=== PATIENT | male | born 1980 | race Hispanic/Latino ===

== ENCOUNTER 2016-10-19 05:16 | Emergency (ER) | payer OTHER ==
[~2016-10-19] VITALS: Ht 180.3 cm; Wt 100.0 kg
[2016-10-19 05:22] VITALS: BP 170/116; PULSE 96; RESP 16; O2SAT 99
--- NOTE | 2016-10-19 06:16 | ED.REPORT ---
HPI-Rash / Abscess Date of Service Oct 19, 2016 ED Provider: Ugo Gutierrez MD Pt is a 36 year old male with a history of HTN who presents to the ED complaining of itching on his left leg onset 3 days ago. He c/o associated erythema and pain at the site. He denies fever, chills, diaphoresis, injury or wound, other sites of erythema, and any other symptoms. Nursing Notes Stated Complaint: INSECT BITE SWOLLEN LT LEG Chief Complaint: Skin Rash/Abscess Nursing Notes Reviewed: Yes (Watsi not reconciled) Allergies: Coded Allergies: No Known Allergies (Unverified , 10/19/16) Scheduled Cephalexin (Cephalexin) 500 Mg Tablet 500 MG PO TID Sulfamethoxazole/Trimeth 800-160 mg (Bactrim DS) 1 Each Tablet 1 TABLET PO BID Scheduled PRN Hydrocodone-Acetaminophen 5-325 mg (Hydrocodone-Acetaminophen 5-325 mg) 1 Each Tablet 1-2 TABLET PO TID PRN PRN For Pain General Time Seen by MD: 06:06 Chief Complaint Red area Hx Obtained From: Patient Arrived By: Walk-in Onset Occurred: 3 days ago Symptom Duration: Since onset Location: : Lower extremity Severity: Current: Moderate Severity: Maximum: Moderate Recent Healthcare: No recent doctor visit, No recent hospitalization Similar Sx Previous: No Past Medical History Past Medical History Reports: Hypertension Past Surgical History Denies Smoking History Unknown if Ever Smoker Social History Alcohol Use: "Social" Drug Use: Denies drug use Other Social History: Good social support Ambulatory Status Independent Review of Systems + Erythema on left lower leg Constitutional: Denies: Chills, Fever Musculoskeletal: Reports: Extremity pain Skin: Reports Itching, Denies Diaphoresis Complete sys rev & neg: except as marked. Physical Exam Initial Vital Signs Vital Signs (First) Date Time Temp Pulse Resp B/P Pulse Ox O2 Delivery O2 Flow Rate FiO2 10/19/16 05:22 37 96 16 170/116 99 10/19/16 07:21 Room Air Initial VS: Reviewed, Vital signs abnormal (HTN) Head / Eyes: Atraumatic, Normocephalic Neck: Supple, Full range of motion Respiratory: Breath sounds normal, Clear to auscultation, No respiratory distress Cardiovascular: Regular rate & rhythm, Heart sounds normal, Intact distal pulses Abdomen / GI: Soft, Non-tender Neurologic: Alert, Oriented, Nonfocal Psychiatric: Mood/affect normal, Behavior normal General/Constitutional: Awake, Alert, Cooperative Skin: Warm, Dry Lower Extremity / Pelvis / MS: Neurologic intact, Vascular intact Beefy cellulitis in the left lower extremity, mainly around the elliott with pitting edema. No crepitus. Interpretation & Diagnostics Lab Results Interpretation Result Diagram: 10/19/16 0646 10/19/16 0646 Test 10/19/16 06:46 White Blood Count 7.0th/mm3 (3.8-10.1) Red Blood Count 5.63mil/mm3 (4.40-5.80) Hemoglobin 16.6g/dL (13.8-17.2) Hematocrit 47.9% (41.0-50.0) Mean Corpuscular Volume 85.1fL (81-100) Mean Corpuscular Hemoglobin 29.5pg (27.0-35.0) Mean Corpuscular Hemoglobin Concent 34.7% (32.0-37.0) Red Cell Distribution Width 12.8% (12.3-15.4) Platelet Count 214bil/L (150-400) Neutrophils (%) (Auto) 66.2% (40-74) Lymphocytes (%) (Auto) 21.1% (14-46) Monocytes (%) (Auto) 10.9% (4-12) Eosinophils (%) (Auto) 1.1% (0-5) Basophils (%) (Auto) 0.4% (0-3) D-Dimer < 0.50mg/L FEU (<0.50) Sodium Level 138mEq/L (134-144) Potassium Level 4.0mEq/L (3.5-5.2) Chloride Level 101mEq/L (97-108) Carbon Dioxide Level 24mmol/L (18-29) Blood Urea Nitrogen 20mg/dL (6-20) Creatinine 0.77mg/dL (0.76-1.27) Estimat Glomerular Filtration Rate 123mL/min (>59) Glucose Level 111mg/dL (60-99) Calcium Level 9.0mg/dL (8.5-10.1) Total Bilirubin 1.0mg/dL (0.0-1.2) Aspartate Amino Transf (AST/SGOT) 29U/L (0-50) Alanine Aminotransferase (ALT/SGPT) 63U/L (0-44) Alkaline Phosphatase 64U/L (25-150) Total Protein 7.6g/dL (6.4-8.4) Albumin 4.1g/dL (3.4-5.0) Lab Results Interpretation: CBC normal CMP normal D-dimer negative Re-Eval/Medical Decision Med Decision/Clinical Course This is a 36-year-old male who presents with redness swelling and pain in the left leg. He noticed redness on the elliott on Saturday, has been progressively worsening. It is painful, erythematous, hot, and he just drove back from [place] and has some swelling in the left leg has developed as well. He has no fever, chills, chest pain, shortness breath, palpitations. He is recalling specific trauma but wonder if he may have had a "bug bite". On exam he has a clear cellulitis of the anterior elliott of the left lower extremity, and there is a moderate amount of edema of the foot and ankle, but is strong pulses. I do not appreciate any open wounds, there is no clinical signs of abscess or crepitus. I do not appreciate best clear source, there is no signs of MRSA or an obvious bite on clinical exam. The patient does not appear toxic or acutely ill. The patient received an IV doses of Ancef, and an oral dose of Bactrim to cover both staph and strep. Blood work was normal, including a negative d-dimer which in this setting excludes DVT. The patient is being discharged on oral course of cephalexin and Bactrim, plus a few hydrocodone. A Court note was written. The patient's discharge with routine and return precautions. Source of Hx: Old records Re-Evaluation/Progress : Time of Eval: 07:49 Re-Evaluation/Progress Note: Pt rechecked. Informed pt of plan for discharge. Pt understands and agrees with plan for discharge. F/U instructions and RTER warnings given. All questions addressed Differential Diagnosis: Positive: Cellulitis, Negative: AIDS/HIV, Abscess, Allergic reaction, Gangrene, Hand, foot, mouth disease, Henoch-Schonlein purpura, Hidradenitis suppurativa, Impetigo, Kawasaki' s disease, Osteomyelitis, Perirectal abscess, Cristiano mt spotted fever, Tinea pedis Counseled Regarding: Diagnosis, Lab results, Need for follow-up, When/why to return to ED Discharge & Departure Impression: Primary Impression: Cellulitis Site of cellulitis: unspecified site Qualified Code: L03.90 - Cellulitis, unspecified Disposition: Home Discharge Condition All VS Reviewed: Yes Condition: Stable Additional Instructions: 1. This is an infection of the skin called cellulitis. 2. You received an injection of the antibiotic Ancef and a dose of the oral antibiotic trimethoprim/sulfa. 3. Continue the antibiotic trimethoprim/sulfa 1 tab twice a day for 10 days 4. You will also need to take the antibiotic cephalexin 500mg three times a day for 10 days. 5. Keep the leg elevated as much as possible for the next few days. 6. It usually takes ~36-48 hours for symptoms to start to improve after beginning antibiotics. If symptoms are getting worse or you develop new symptoms, return to the ED. 7. Take ibuprofen 400-800mg three times a day for pain. 8. If needed take hydrocodone/APAP 5/325 1-2 tabs up to three times a day. NOTE : this medication contains a narcotic and causes drowsiness. NO driving for at least 4 hours after taking. Use sparingly. Referrals: Madisyn Yadav MD Attestation Portions of this note were transcribed by Sapphire Packer. I, Dr. Gutierrez personally performed the history, physical exam and medical decision-making; I reviewed and confirmed the accuracy of the information in the transcribed note. Signed by: Maximus Mercado, 10/19/16 and 07:30. copies to: Madisyn Yadav MD, Matthew F MD Oct 19, 2016 06:16 Sapphire Burris Oct 19, 2016 06:23
[2016-10-19] MEDS ORDERED: CeFAZolin Inj 2 GM in IV Premix 1 EACH IV ONE (06:25)
[2016-10-19] MEDS ORDERED: Trimethoprim-Sulfa 160 mg-800 mg Tablet PO ONE (06:25)
[2016-10-19] MEDS ORDERED: CEPH500T PO (06:31)
[2016-10-19] MEDS ORDERED: HYDR-4003 PO (06:31)
[2016-10-19] MEDS ORDERED: SULF1TAB7 PO (06:31)
[2016-10-19 06:53] LABS: BASOPHILS % (AUTO) 0.4 % (0-3); EOSINOPHILS % (AUTO) 1.1 % (0-5); MONOCYTES % (AUTO) 10.9 % (4-12); Mean Corpuscular Hemoglobin 29.5 pg (27.0-35.0); Mean Corpuscular Volume 85.1 fL (81-100); NEUTROPHILS % (AUTO) 66.2 % (40-74); Platelet Count 214 bil/L (150-400)
[2016-10-19 07:21] VITALS: BP 157/104; PULSE 74; RESP 16; O2SAT 98
[2016-10-19 08:14] VITALS: BP 169/109; PULSE 90; RESP 16; O2SAT 100
== END 2016-10-19 08:17 | disposition home or self-care (01) ==
LOC: SED 05:16
DX: L03.116 Cellulitis of left lower limb (principal); I10 Essential (primary) hypertension
CPT/HCPCS: 36415; 80053; 85025; 85378; 96365; 99284; J0690